=== PATIENT | female | born 1935 | race Caucasian/White ===

== ENCOUNTER 2019-06-08 05:44 | Inpatient (IN) | payer OTHER ==
[~2019-06-08] VITALS: Ht 152.4 cm; Wt 49.9 kg
[2019-06-08] MEDS ORDERED: SYNTHROID75 MCG (05:53)
[2019-06-08] MEDS ORDERED: DULOXETINE HCL40 MG (05:53)
[2019-06-08] MEDS ORDERED: CLONAZEPAM0.5 MG (05:54)
[2019-06-08] MEDS ORDERED: RISPERIDONE OD0.5 MG (05:54)
[2019-06-08] MEDS ORDERED: CLONAZEPAM1 MG (05:54)
[2019-06-17] MEDS ORDERED: ZYVOX 600600 MG/300 IV (13:57)
[2019-06-17] MEDS ORDERED: XOPENEX0.63 MG/3 IH (14:01)
[2019-06-17] MEDS ORDERED: MERREM1 GM IV (14:01)
[2019-06-17] MEDS ORDERED: INTESTINEX680 M1 PO (14:01)
== END 2019-06-18 00:42 | disposition home or self-care (01) | DRG 179 ==
LOC: ER 05:44 → MEDI 13:05 → MEDJ 13:05
PROVIDERS: ADMIT Internal Medicine
PROC: 0DH63UZ Insertion of Feeding Device into Stomach, Percutaneous Approach (ICD-10-PCS; principal; 2019-06-09)
PROC: 4A033R1 Measurement of Arterial Saturation, Peripheral, Percutaneous Approach (ICD-10-PCS; 2019-06-10)
PROC: 3E0F7GC Introduction of Other Therapeutic Substance into Respiratory Tract, Via Natural or Artificial Opening (ICD-10-PCS; 2019-06-14)
DX: J69.0 Pneumonitis due to inhalation of food and vomit (principal); E86.0 Dehydration; E03.9 Hypothyroidism, unspecified; G30.9 Alzheimer's disease, unspecified; F02.80 Dementia in other diseases classified elsewhere, unspecified severity, without behavioral disturbance, psychotic disturbance, mood disturbance, and anxiety; R13.12 Dysphagia, oropharyngeal phase; Z74.01 Bed confinement status; B86 Scabies; R09.02 Hypoxemia